=== PATIENT | female | born 1970 | race Hispanic/Latino ===

== ENCOUNTER 2017-07-20 16:33 | Emergency (ER) | payer OTHER, SELFPAY | END 2017-07-20 17:25 | disposition home or self-care (01) | LOC: EDH 16:33 | DX: B34.9 Viral infection, unspecified (principal); I10 Essential (primary) hypertension; Z90.49 Acquired absence of other specified parts of digestive tract ==

== ENCOUNTER 2023-02-03 14:41 | Emergency (ER) | payer OTHER ==
[~2023-02-03] VITALS: Ht 157.5 cm; Wt 106.6 kg
[2023-02-03 15:33] LABS: BASOPHILS # (AUTO) 0.04 K/uL (0.00-0.20); BASOPHILS % (AUTO) 0.4 % (0.0-5.0); EOSINOPHILS # (AUTO) 0.05 K/uL (0.00-0.70); EOSINOPHILS % (AUTO) 0.5 % (0.0-8.0); HEMATOCRIT 36.5 % (36-48); IMMATURE GRANULOCYTE ABSOLUTE 0.04 K/uL (0-1); MEAN CORPUSCULAR HGB CONC 30.4 g/dL (32.0-36.0); MEAN CORPUSCULAR VOLUME 69.1 fL (79-99); MONOCYTES # (AUTO) 0.5 K/uL (0.1-1.0); MONOCYTES % (AUTO) 5.1 % (3.0-13.0); NEUTROPHILS # (AUTO) 7.2 K/uL (1.8-7.7); NEUTROPHILS % (AUTO) 73.6 % (40.0-77.0); PLATELET COUNT (AUTO) 491 K/uL (130-400); RED BLOOD CELL COUNT(AUTO) 5.28 MIL/uL (4.00-5.50); RED CELL DISTRIBUTION WIDTH 17.2 % (11.0-15.5); WHITE BLOOD COUNT (AUTO) 9.8 K/uL (4.8-10.8)
[2023-02-03 15:48] LABS: HCG,QUALITATIVE URINE NEGATIVE (NEGATIVE)
[2023-02-03] MEDS ORDERED: ONDANSETRON 4MG INJ IVP ONE (16:00)
[2023-02-03] MEDS ORDERED: HYDRALAZINE 20MG/ML VIAL IV ONE (16:00)
[2023-02-03 16:13] LABS: CREATININE 0.9 mg/dL (0.5-1.5); POTASSIUM 3.9 mmol/L (3.5-5.1)
[2023-02-03 16:17] LABS: ALBUMIN 3.4 g/dL (3.5-5.0); BILIRUBIN,TOTAL 0.8 mg/dL (0.2-1.0); TOTAL PROTEIN, SERUM 7.9 g/dL (6.0-8.3)
[2023-02-03 17:03] LABS: APPEARANCE,URINE CLEAR (CLEAR); BILIRUBIN,URINE NEGATIVE (NEGATIVE); COLOR,URINE YELLOW (YELLOW); GLUCOSE, URINE (UA) >=1000 mg/dL (NEGATIVE); KETONES,URINE 40 mg/dL (NEGATIVE); LEUKOCYTE ESTERASE ,URINE 25 Leu/uL (NEGATIVE); NITRATE,URINE NEGATIVE (NEGATIVE); OCCULT BLOOD,URINE NEGATIVE (NEGATIVE); PH,URINE 5.5 (5.0-8.0); PROTEIN,URINE 30 mg/dL (NEGATIVE); UROBILINOGEN,URINE 0.2 mg/dL (0.2-1.0)
[2023-02-03 17:05] LABS: ADD UA MICROSCOPIC YES
[2023-02-03 17:07] LABS: BACTERIA,URINE RARE /HPF (None Seen); MUCUS,URINE RARE LPF (None Seen); SQUAMOUS EPITHELIAL CELL,UR FEW /HPF (0-2)
[2023-02-03 17:58] VITALS: PULSE 91; RESP 16; O2SAT 100
[2023-02-03] MEDS ORDERED: 0.9%NACL 1000ML 1,000 ML IV SCH (18:00)
[2023-02-03] MEDS ORDERED: LABETALOL 20MG VIAL IV ONE (18:00)
[2023-02-03] MEDS ORDERED: INSULIN HUMULIN R 100 UNIT/ML 3ML SQ ONE (18:00)
[2023-02-03] MEDS ORDERED: LOSARTAN 50 MG TABLET PO SCH (18:30)
[2023-02-03 18:38] VITALS: BP 181/96
== END 2023-02-03 19:00 | disposition left against medical advice (07) ==
LOC: EDH 14:41
DX: R06.02 Shortness of breath (principal); R42 Dizziness and giddiness
CPT/HCPCS: 99285; 96374; 71045; 96375; 84484; 80053; 85025; 87088; 81001; 81025; 36415; 93005; 96372; J1815; J0360; J2405; J3490